=== PATIENT | female | born 1980 | race Caucasian/White ===

== ENCOUNTER 2021-08-27 07:32 | Day surgery (SDC) | payer BC, OTHER ==
[2021-08-27] MEDS ORDERED: Lactated Ringers 1,000 ML IV ONE (08:00)
[2021-08-27] MEDS ORDERED: Cyanocobalamin (Vitamin B12) 1,000 MCG/ML SDV IM ONE (08:00)
[2021-08-27] MEDS ORDERED: Glycopyrrolate 0.2 MG/ML 2 ML SDV IVPUSH ONE (09:00)
[2021-08-27] MEDS ORDERED: MVI, Adult with Vitamin K 10 ML, Thiamine 200 MG, Zinc/Copper/Manganese/Selenium 1 ML i... IV ONE ×4 (09:00)
[2021-08-27] MEDS ORDERED: Pantoprazole 40 MG Vial IVPUSH ONE (10:47)
--- NOTE | 2021-08-30 07:28 | OR ---
DATE OF PROCEDURE: 08/27/2021 SURGEON: Josué Campuzano MD PREOPERATIVE DIAGNOSES: Epigastric pain and element of dysphagia, status post Quinten-en-Y gastric bypass. POSTOPERATIVE DIAGNOSES: Upper GI endoscopy showing ulcerated esophagitis. OPERATIVE PROCEDURE: Upper GI endoscopy with biopsies of gastric pouch for CLOtest. ANESTHESIA: IV sedation. INDICATIONS FOR PROCEDURE: This is a 41-year-old female presenting with some increasing dysphagia and epigastric discomfort. 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 She had been started on a low-dose omeprazole, and with this, has felt somewhat better. The plan is to proceed with upper GI endoscopy with biopsies as indicated. Potential risks of the procedure including bleeding and perforation were discussed, and the patient wishes to proceed. DETAILS OF PROCEDURE: The patient was taken to the operating room and placed in a left lateral decubitus position. IV sedation was administered after which the upper GI endoscope was passed orally through the length of the esophagus into the gastric pouch and through the gastrojejunostomy roughly 20 cm into the Quinten limb. The patient's hypopharynx, larynx, and upper esophageal sphincter were unremarkable as was the esophageal body. In the distal esophagus, there were 3 linear ulcers extending upwards from the esophagogastric junction. These were covered with some fibrinous exudate. Biopsies were not obtained around these as these appeared to be healing, but would be at risk for bleeding based on the amount of inflammation present. The gastric pouch was slightly reddened but otherwise unremarkable. Gastrojejunostomy was unremarkable as was the visualized portion of the Quinten limb. At this point, biopsy was obtained from the gastric pouch, sent for CLOtest for H pylori. Minimal bleeding from the biopsy sites was seen, and the procedure was then concluded. At this point, the patient will be given Protonix 40 mg IV push in the recovery room, and then she will be given a prescription for Protonix 40 mg b.i.d. x2 weeks, then 40 mg daily, and followup will be set up with Cici Houser PA-C on 09/27/2021 with a virtual visit. She will be discontinuing the omeprazole in the meantime. Josué Campuzano MD Job #: [id number]
== END 2021-08-27 12:12 | disposition home or self-care (01) ==
LOC: JP.SDS 07:32
PROVIDERS: ATTEND Surgery
DX: R13.10 Dysphagia, unspecified (principal); R10.13 Epigastric pain; Z98.84 Bariatric surgery status
CPT/HCPCS: 43239; 81025; 87081; C9113; J3411; J3420; J3490; J7120